=== PATIENT | female | born 1990 | race Caucasian/White ===

== ENCOUNTER 2016-12-19 08:46 | Emergency (ER) | payer OTHER ==
[~2016-12-19] VITALS: Ht 165.1 cm; Wt 58.2 kg
[~2016-12-19 08:46] MED LIST: ADVAIR 100/501 DISK IH; ALBUTEROL17 GM IH
[2016-12-19 09:27] LABS: HEMATOCRIT 41.3 % (36.0-46.0); MCHC 34.6 G/DL (30.0-36.0); MCV 89.6 FL (83-99); RBC DIS.WIDTH-SD 38.6 % (39-53); RED BLOOD COUNT 4.61 M/uL (3.80-5.20); WHITE BLOOD COUNT 11.3 K/uL (4.1-10.2)
[2016-12-19 09:31] LABS: MEAN PLAT.VOLUME 11.5 uM^3 (9.5-12.4); PLATELET COUNT 225 K/uL (156-360)
[2016-12-19 09:36] LABS: CHLORIDE 108 mEq/L (99-109); POTASSIUM 4.1 mEq/L (3.7-5.4); SODIUM 140 mEq/L (136-147)
[2016-12-19 09:39] LABS: GLUCOSE 95 mg/dL (70-99)
[2016-12-19 09:40] LABS: ANION GAP 9 MEQ/L (2-14)
[2016-12-19 09:41] LABS: TOTAL BILIRUBIN 0.4 mg/dL (0.0-1.0)
[2016-12-19 09:42] LABS: ALKALINE PHOSPHATASE 32 IU/L (3-129); GFR ESTIMATE (CALCULATED) > 59 mL/min/
[2016-12-19 09:44] LABS: UREA NITROGEN (BUN) 10 mg/dL (9-23)
[2016-12-19 09:46] LABS: LIPASE 30 U/L (1.0-51.0)
[2016-12-19 09:52] LABS: ADD MIUA? NO; BILIRUBIN NEGATIVE; BLOOD NEGATIVE; COLOR YELLOW ((YELLOW)); GLUCOSE (STRIP) NEGATIVE; KETONES NEGATIVE; LEUKOCYTES NEGATIVE; NITRITE NEGATIVE; PROTEIN (STRIP) NEGATIVE; SPECIFIC GRAVITY 1.018 (1.000-1.030); UROBILINOGEN 0.2 MG/DL (0.2-1.0)
[2016-12-19 09:52] LABS: QUANTITATIVE HCG < 4.0 MIU/ML
[2016-12-19] MEDS ORDERED: PERCOCET 5/31 TABLET PO (12:05)
[2016-12-19] MEDS ORDERED: ZOFRAN ODT4 MG PO (12:05)
[2016-12-19 13:31] VITALS: BP 106/79
== END 2016-12-19 13:37 | disposition home or self-care (01) ==
LOC: EME 08:46
PROVIDERS: Nurse Practitioner Family
DX: N83.201 Unspecified ovarian cyst, right side (principal); J45.909 Unspecified asthma, uncomplicated
CPT/HCPCS: 74177; 76856; 80053; 81003; 83690; 84702; 85027; 99281; 99285; J1885; J2405; J7030